=== PATIENT | male | born 1950 | race Caucasian/White ===

== ENCOUNTER 2019-08-28 05:27 | Observation (INO) | payer OTHER ==
[~2019-08-28] VITALS: Ht 170.2 cm; Wt 96.6 kg
[2019-08-28 05:36] VITALS: BP 182/97
--- NOTE | 2019-08-28 05:36 | NUR ---
PT TAKEN TO BED 11
--- NOTE | 2019-08-28 05:52 | NUR ---
Dr. Thomson examining patient.
--- NOTE | 2019-08-28 05:52 | NUR ---
68 YEAR OLD MALE COMPLAINS OF SHORTNESS OF BREATHE X 4 HOURS. PATIENT STATES SHORTNESS OF BREATHE HAPPENS ON/OFF PAST COUPLE OF WEEKS. PATIENT BREATHING EVEN AND UNLABORED, LUNGS CTABL. SPO2 99%, RR 18. PATIENT AOX4, SKIN WARM AND DRY. BED IN LOWEST POSITION, LOCKED, BED RAIL UPX1. PMH - DENIES ALLERGIES - NKA
[2019-08-28] MEDS ORDERED: hydrALAZINE 20 MG/ML VIAL IVP ONE (06:10)
--- NOTE | 2019-08-28 06:20 | NUR ---
X-Ray at bedside.
--- NOTE | 2019-08-28 06:31 | NUR ---
REPEAT BLOOD PRESSURE TAKEN AT 162/84. PER DR CALHOUN TO HOLD BP MEDICATION
--- NOTE | 2019-08-28 06:49 | NUR ---
PATIENT O2 SATURATION 91%, PLACED ON 2L NC PER DR CALHOUN VERBAL ORDER
[2019-08-28 07:09] LABS: EOSINOPHILS # (AUTO) 0.2 K/uL (0-0.4); EOSINOPHILS % (AUTO) 4.8 % (0.0-4.0); HEMATOCRIT 44.3 % (36-52); HEMOGLOBIN 15.4 g/dL (12.0-18.0); LYMPHOCYTES % (AUTO) 24.6 % (20.5-51.1); MEAN CORPUSCULAR HEMOGLOBIN 30 pg (27-31); MEAN CORPUSCULAR HGB CONC 35 g/dL (33-37); MEAN CORPUSCULAR VOLUME 87.5 fL (80-94); MONOCYTES # (AUTO) 0.4 K/uL (0.8-1.0); NEUTROPHILS # (AUTO) 2.5 K/uL (1.8-7.7); NEUTROPHILS % (AUTO) 59.6 % (42.2-75.2); PLATELET COUNT (AUTO) 214 K/uL (140-450); RED BLOOD CELL COUNT(AUTO) 5.06 MIL/uL (4.20-6.10); RED CELL DISTRIBUTION WIDTH 12.8 % (11.6-13.7); WHITE BLOOD COUNT (AUTO) 4.3 K/uL (4.8-10.8)
--- NOTE | 2019-08-28 07:12 | NUR ---
REPORT GIVEN TO AMELIA WILLARD, TRANSFER OF CARE AT THIS TIME
[2019-08-28 07:22] LABS: ANION GAP 10.1 (8-16); CARBON DIOXIDE 27.6 mmol/L (21-32); CREATININE 0.8 mg/dL (0.6-1.3); POTASSIUM 3.7 mmol/L (3.5-5.1); TOTAL BILIRUBIN 0.4 mg/dL (0.0-1.0)
--- NOTE | 2019-08-28 07:33 | NUR ---
ERMD AT BEDSIDE
--- NOTE | 2019-08-28 07:33 | NUR ---
PT RESTING IN BED, SIDE RAIL X1, FAMILY AT BEDSIDE
[2019-08-28 08:58] LABS: PROTHROMBIN TIME 10.2 secs (10.8-13.4)
[2019-08-28 09:17] LABS: D-DIMER < 100 ng/ml (0-400)
--- NOTE | 2019-08-28 09:23 | NUR ---
PT RESTING IN BED, SIDE RAIL X1
[2019-08-28] MEDS ORDERED: ALBUTEROL 0.083% 2.5 MG/3 ML NEBU INH PRN (10:55)
[2019-08-28] MEDS ORDERED: ACETAMINOPHEN 325 MG TAB PO PRN (10:55)
--- NOTE | 2019-08-28 11:49 | NUR ---
Patient will be admitted to [facility]. Admited to TELEMETRY. Will go to room 120A. Belongings list completed. Report to BAKARI WILLARD.
[2019-08-28 11:50] VITALS: BP 138/76
--- NOTE | 2019-08-28 11:50 | NUR ---
RECEIVED REPORT FROM EMERGENCY NURSE AMELIA FOR CONTINUITY OF CARE. PT IN STABLE CONDITION. RESPIRATIONS EVEN AND UNLABORED, ROOM AIR. IV INTACT AND PATENT. SAFETY MEASURES IN PLACE. BED IN LOW POSITION. CALL LIGHT AT BEDSIDE. WILL CONTINUE TO MONITOR.
[2019-08-28 12:12] LABS: CREATINE KINASE MB 0.8 ng/mL (0-3.6)
--- NOTE | 2019-08-28 12:15 | NUR ---
MRSA NARES TAKEN TO LAB AT THIS TIME.
--- NOTE | 2019-08-28 13:01 | NUR ---
PT EATING LUNCH AT THIS TIME. PT TOLERATING WELL. BED IN LOW POSITION. CALL LIGHT AT BEDSIDE. WILL CONTINUE TO MONITOR.
--- NOTE | 2019-08-28 15:20 | NUR ---
PT TALKING WITH FAMILY AT THIS TIME. RESPIRATIONS EVEN AND UNLABORED. BED IN LOW POSITION. CALL LIGHT AT BEDSIDE. WILL CONTINUE TO MONITOR.
[2019-08-28 16:00] VITALS: BP 140/67
--- NOTE | 2019-08-28 17:52 | NUR ---
PT WATCHING TV TALKING WITH FAMILY AT BEDSIDE. BED IN LOW POSITION. CALL LIGHT AT BEDSIDE. WILL CONTINUE TO MONITOR.
--- NOTE | 2019-08-28 19:30 | NUR ---
GAVE REPORT TO ELECTROMECHANICAL EQUIPMENT ASSEMBLER NURSE BIRD FOR CONTINUITY OF CARE. PT IN STABLE CONDITION.
--- NOTE | 2019-08-28 19:50 | NUR ---
REPORT GIVEN TO SUDHEER WADSWORTH FOR CONTINUITY OF CARE. PT IS IN STABLE CONDITION. ON TELE MONITOR. FAMILY AT BEDSIDE. NO C/O ANY PAIN NOTED.
[2019-08-28 20:00] VITALS: BP 146/72
--- NOTE | 2019-08-28 20:00 | NUR ---
A/A/O X4.AMBULATORY.FAMILY @ THE BS.DENIES ANY DISCOMFORT @ THIS TIME.DENIES SOB. INSTRUCTED TO USE CALL LIGHT NEEDED;WITHIN REACH.
[2019-08-28] MEDS ORDERED: ATORVASTATIN 20 MG TAB PO SCH (21:00)
--- NOTE | 2019-08-28 21:40 | NUR ---
RECEIVED PATIENT ON ROOM AIR, PULSE OX SAT 97%. FAMILY AT BEDSIDE. PT DENIES SOB. PRN HHN NOT INDICATED AT THIS TIME. PT MADE AWARE OF ORDERED MEDICATION FREQUENCY AND INSTRUCTED TO CALL NEEDED FOR SOB. NO ACUTE RESPIRATORY DISTRESS NOTED AT THIS TIME. WILL CONTINUE TO MONITOR.
[2019-08-28 22:09] VITALS: BP 141/73
[2019-08-28] MEDS: METOPROLOL 25 MG TAB PO SCH (22:11)
[2019-08-29] VITALS: BP 149/69
--- NOTE | 2019-08-29 | NUR ---
RESTING COMFORTABLY IN NO ACUTE DISTRESS.BP 149//69,AFEBRILE .TE4LE SHOWED SB RATE 52.
--- NOTE | 2019-08-29 02:00 | NUR ---
RESTING COMFORTABLY IN NO ACUTE DISTRESS.FAMILY @ THE BS.
[2019-08-29 04:00] VITALS: BP 129/69
--- NOTE | 2019-08-29 04:00 | NUR ---
AFEBRILE.TELE SHOWED SB.FAMILY @ THE BS.
--- NOTE | 2019-08-29 06:00 | NUR ---
DENIES ANY CP OR SOB OVER 12 HRS.
[2019-08-29 06:34] LABS: ALBUMIN 3.6 g/dL (3.4-5.0); ANION GAP 12.5 (8-16); CARBON DIOXIDE 27.4 mmol/L (21-32); CREATININE 0.8 mg/dL (0.6-1.3); POTASSIUM 3.9 mmol/L (3.5-5.1); TOTAL BILIRUBIN 0.6 mg/dL (0.0-1.0)
--- NOTE | 2019-08-29 06:41 | NUR ---
ENDORSED IN NO ACUTE DISTRESS.FAMILY @ THE BS.SAFETY MAINTAINED.CALL LIGHT WITHIN REACH.
[2019-08-29 06:49] LABS: CHOL/HDL RATIO 4.6 (1-4.5)
[2019-08-29 06:55] LABS: BASOPHILS % (AUTO) 0.6 % (0.0-2.0); EOSINOPHILS # (AUTO) 0.2 K/uL (0-0.4); EOSINOPHILS % (AUTO) 4.7 % (0.0-4.0); HEMATOCRIT 45.1 % (36-52); HEMOGLOBIN 15.5 g/dL (12.0-18.0); LYMPHOCYTES # (AUTO) 1.3 K/uL (2.0-11.5); LYMPHOCYTES % (AUTO) 25.4 % (20.5-51.1); MEAN CORPUSCULAR HEMOGLOBIN 30 pg (27-31); MEAN CORPUSCULAR HGB CONC 35 g/dL (33-37); MEAN CORPUSCULAR VOLUME 88.3 fL (80-94); MONOCYTES # (AUTO) 0.5 K/uL (0.8-1.0); NEUTROPHILS # (AUTO) 3.1 K/uL (1.8-7.7); NEUTROPHILS % (AUTO) 59.3 % (42.2-75.2); PLATELET COUNT (AUTO) 215 K/uL (140-450); RED BLOOD CELL COUNT(AUTO) 5.11 MIL/uL (4.20-6.10); WHITE BLOOD COUNT (AUTO) 5.3 K/uL (4.8-10.8)
[2019-08-29 08:00] VITALS: BP 141/89
[2019-08-29] MEDS: METOPROLOL 25 MG TAB PO SCH (08:46)
--- NOTE | 2019-08-29 08:51 | NUR ---
PATIENT HAS BEEN SCREENED AND CATEGORIZED MODERATE NUTRITION RISK. PATIENT WILL BE SEEN WITHIN 3-5 DAYS OF ADMISSION. 08/30/19 09/01/[address]
[2019-08-29] MEDS ORDERED: ENOXAPARIN 40 MG/0.4 ML SYR SUBQ SCH (09:00)
[2019-08-29] MEDS ORDERED: ASPIRIN 81 MG TAB.CHEW PO SCH (09:00)
[2019-08-29] MEDS ORDERED: LISINOPRIL 10 MG TAB PO SCH (09:00)
[2019-08-29 11:07] LABS: CREATINE KINASE MB 0.8 ng/mL (0-3.6)
--- NOTE | 2019-08-29 11:20 | NUR ---
DC [age] YRS OLD MALE PATIENT WAS ADMITTED FROM HOME WITH A DX OF SOB AND HYPERTENSION. ON ARRIVAL BP 182/97 PT HAS NO MEDICAL HISTORY. CXR SHOWED MILD CARDIOMEGALY , ADMINISTERED BP MEDS , CONSULTED WITH MACHINE PLUG SHAPER DR Ramiro CASTRO ADD METOPROLOL 25MG PO AND STATIN . ECHO RESULTED EF 60-65% . DC PLAN TO GO HOME WHEN STABLE. CM TO FOLLOW
[2019-08-29 12:00] VITALS: BP 139/82
--- NOTE | 2019-08-29 12:00 | NUR ---
PATIENT RESTING IN ROOM - NO COMPLAINTS OR CONCERNS- SAFETY PRECAUTIONS IN PLACE- VITALS STABLE - SB ON TELE-AMBULATING IN ROOM- TOLERATING DIET- ABLE TO USE THE BATHROOM- WILL CONTINUE TO MONITOR REPORT AND RECORD
[2019-08-29] MEDS ORDERED: LISI-420 PO (13:17)
[2019-08-29 13:39] VITALS: BP 139/85
--- NOTE | 2019-08-29 14:45 | NUR ---
PIV REMOVED- ARMBAND REMOVED- PATIENT DRESSING AND BELONGINGS IN HAND- DISCUSSED DISCHARGE - VERBALIZE UNDERSTANDING- REVIEWED RX AND NEW MEDICATIONS -EDUCATED ON THE NEED FOR FOLLOW UP APPOINT- PATIETN VERBALIZED UNDERSTANDING- PATIENT VERBALIZED UNDERSTANDING- WILL CONTINUE TO MONITOR REPORT AND RECORD
== END 2019-08-29 14:45 | disposition home or self-care (01) ==
LOC: MED 05:27 → MTU 10:56
PROVIDERS: ADMIT Internal Medicine; ATTEND Internal Medicine
DX: R06.02 Shortness of breath (principal); R07.89 Other chest pain; I11.9 Hypertensive heart disease without heart failure; E66.8 Other obesity; Z79.82 Long term (current) use of aspirin; Z79.899 Other long term (current) drug therapy; Z68.33 Body mass index [BMI] 33.0-33.9, adult
CPT/HCPCS: 36415; 71045; 80053; 80061; 82550; 82553; 83735; 83880; 84484; 85025; 85379; 85610; 87081; 87804; 93005; 93307; 94760; 96372; 99285; G0378; J1650; Q0092

== ENCOUNTER 2022-12-14 10:30 | Emergency (ER) | payer MEDICARE, OTHER ==
[~2022-12-14] VITALS: Ht 172.7 cm; Wt 95.7 kg
[~2022-12-14 10:30] MED LIST: LISI20TA29 PO
[2022-12-14 10:44] VITALS: BP 116/74
--- NOTE | 2022-12-14 10:49 | NUR ---
DRESSING TO HEAD APPLIED AT TRIAGE, NO ACUTE BLEEDING NOW. PT. WILL NEED SUTURES
--- NOTE | 2022-12-14 12:37 | NUR ---
PATIENT WENT TO CT.
[2022-12-14 13:15] VITALS: BP 116/74
--- NOTE | 2022-12-14 13:27 | NUR ---
NON ADHERENT APPLIED WITH ROLL GAUZE
--- NOTE | 2022-12-14 13:48 | NUR ---
Patient discharged with v/s stable. Written and verbal after care instructions given and explained. Patient verbalized understanding. Ambulatory with steady gait. All questions addressed prior to discharge. Advised to follow up with PMD.
== END 2022-12-14 13:48 | disposition home or self-care (01) ==
LOC: MED 10:30
DX: S01.01XA Laceration without foreign body of scalp, initial encounter (principal); I10 Essential (primary) hypertension; Z79.899 Other long term (current) drug therapy; W20.8XXA Other cause of strike by thrown, projected or falling object, initial encounter; Y93.89 Activity, other specified; Y92.89 Other specified places as the place of occurrence of the external cause; Y99.8 Other external cause status
CPT/HCPCS: 99282

== ENCOUNTER 2022-12-22 13:17 | Emergency (ER) | payer MEDICARE ==
[~2022-12-22] VITALS: Ht 170.2 cm; Wt 95.3 kg
[2022-12-22 13:22] VITALS: BP 136/65; PULSE 67; RESP 18; TEMP 98.2; O2SAT 98
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
--- NOTE | 2022-12-22 13:28 | NUR ---
pt ambulatory to bed 04
[2022-12-22 13:57] VITALS: O2SAT 67
[2022-12-22 14:03] VITALS: BP 136/65; PULSE 67; RESP 18; TEMP 98.2; O2SAT 98
== END 2022-12-22 14:02 | disposition home or self-care (01) ==
LOC: MED 13:17
DX: S01.01XD Laceration without foreign body of scalp, subsequent encounter (principal); Z48.02 Encounter for removal of sutures; X58.XXXD Exposure to other specified factors, subsequent encounter
CPT/HCPCS: 99281